=== PATIENT | female | born 1945 | race Caucasian/White ===

== ENCOUNTER 2016-09-19 21:53 | Emergency (ER) | payer MEDICARE | END 2016-09-19 23:32 | disposition home or self-care (01) | LOC: D.ER 21:53 | DX: S00.93XA Contusion of unspecified part of head, initial encounter (principal); W05.0XXA Fall from non-moving wheelchair, initial encounter; Y93.89 Activity, other specified; Y92.129 Unspecified place in nursing home as the place of occurrence of the external cause; Z86.73 Personal history of transient ischemic attack (TIA), and cerebral infarction without residual deficits ==

== ENCOUNTER 2016-09-25 19:32 | Emergency (ER) | payer MEDICARE ==
[2016-09-25 21:42] LABS: BASOPHILS 0.1 % (0-2); EOSINOPHILS 0 % (0-7); HEMATOCRIT 29.7 % (36.0-48.0); HEMOGLOBIN 9.9 g/dL (12-16); IMMATURE GRANULOCYTES 0.3 % (0-5); MCH 31.7 pg (26.0-34.0); MCHC 33.3 g/dL (31.0-37.0); MCV 95.2 fL (80.0-100.0); MEAN PLATELET VOLUME 10.7 fL (7.4-10.4); MONOCYTES 9.9 % (2-11); NEUTROPHILS 62.7 % (40-80); PLATELET COUNT 269 10x3/uL (130-400); RBC 3.12 10x6/uL (4.00-5.40); RDW 16.7 % (11.5-14.5); WBC 6.9 10x3/uL (4.8-10.8)
[2016-09-25 21:54] LABS: ALBUMIN 2.7 g/dL (3.4-5.0); ALKALINE PHOSPHATASE 90 U/L (46-116); ALT (SGPT) 41 U/L (10-68); CALC OSMOLALITY 287 mosm/kg (275-300); CALCIUM 8.4 mg/dL (8.5-10.1); CARBON DIOXIDE 27.1 mmol/L (21.0-32.0); CHLORIDE - SERUM 106 mmol/L (98-107); GLUCOSE 151 mg/dL (74-106); PROTEIN - SERUM 6.2 g/dL (6.4-8.2); SODIUM 141 mmol/L (136-145); UREA NITROGEN 24 mg/dL (7-18); eGFR NON AFRICAN AMERICAN 58 mL/min (90-120)
[2016-09-25 22:10] LABS: CHOL - HDL RATIO 2.3 ratio (2.3-4.1); CHOLESTEROL, TOTAL 128 mg/dL (0-200); CREATINE KINASE 80 UL (21-215); HDL CHOLESTEROL 55 mg/dL (32-96); LDL CHOLESTEROL 51 mg/dL (0-100); LDL-HDL RATIO 0.9 ratio (1.5-3.5); TRIGLYCERIDE 114 mg/dL (30-200)
== END 2016-09-26 00:27 | disposition home or self-care (01) ==
LOC: D.ER 19:32
PROVIDERS: Physician Assistant
DX: R07.9 Chest pain, unspecified (principal); F03.90 Unspecified dementia, unspecified severity, without behavioral disturbance, psychotic disturbance, mood disturbance, and anxiety; I63.9 Cerebral infarction, unspecified; R13.10 Dysphagia, unspecified

== ENCOUNTER 2016-12-16 09:56 | Inpatient (IN) | payer MEDICARE ==
[~2016-12-16] VITALS: Ht 152.4 cm; Wt 70.3 kg
--- NOTE | 2016-12-16 07:40 | NUR ---
PT IN BED WITH EYES CLOSED, RESP EVEN AND UNLABORED, BED LOW AND WHEELS LOCKED, BEDSIDE RAILS X3. CALL LIGHT IN REACH, NAD NOTED, WILL CONTINUE TO MONITOR.
[2016-12-16 10:47] LABS: BASOPHILS 0 % (0-2); EOSINOPHILS 0 % (0-7); HEMATOCRIT 34.2 % (36.0-48.0); HEMOGLOBIN 11.6 g/dL (12-16); IMMATURE GRANULOCYTES 0.2 % (0-5); LYMPHOCYTES 11.8 % (15-50); MCH 31.9 pg (26.0-34.0); MCHC 33.9 g/dL (31.0-37.0); MEAN PLATELET VOLUME 11.3 fL (7.4-10.4); MONOCYTES 4.6 % (2-11); NEUTROPHILS 83.4 % (40-80); PLATELET COUNT 273 10x3/uL (130-400); RBC 3.64 10x6/uL (4.00-5.40); RDW 13.8 % (11.5-14.5); WBC 11.2 10x3/uL (4.8-10.8)
[2016-12-16 11:02] LABS: ANION GAP 17.9 mmol/L (8-16); BILIRUBIN - TOTAL 0.7 mg/dL (0.2-1.3); CALCIUM 9.3 mg/dL (8.5-10.1); CARBON DIOXIDE 20.8 mmol/L (21.0-32.0); CREATININE - SERUM 1.2 mg/dL (0.6-1.3); POTASSIUM - SERUM 3.7 mmol/L (3.5-5.1); PROTEIN - SERUM 7.9 g/dL (6.4-8.2)
[2016-12-16 11:21] LABS: MAGNESIUM - SERUM 1.4 mg/dL (1.8-2.4)
[2016-12-16 11:28] LABS: TROPONIN-I 0.06 ng/mL (0.000-0.060)
[2016-12-16 11:44] LABS: INR 1.39 (0.85-1.17)
[2016-12-16 11:51] LABS: APPEARANCE HAZY (CLEAR); BACTERIA FEW /hpf (NONE SEEN); BILIRUBIN NEGATIVE (NEGATIVE); COLOR YELLOW (YELLOW); EPITHELIAL CELLS 0-5 /hpf (0-5); GLUCOSE NEGATIVE (NEGATIVE); KETONE MODERATE mg/dL (NEGATIVE); LEUKOCYTE ESTERASE TRACE (NEGATIVE); NITRITE NEGATIVE (NEGATIVE); PROTEIN 1+ mg/dL (NEGATIVE); RED CELLS - URINE 0-5 /hpf (0-5); SPECIFIC GRAVITY 1.015 (1.005-1.020); UROBILINOGEN NORMAL (NORMAL); WHITE CELLS - URINE 0-5 /hpf (0-5); YEAST >1+ /hpf (NONE SEEN)
--- NOTE | 2016-12-16 15:00 | NUR ---
PT RECIEVED TO ROOM FROM ER. TRANSFERRED FROM STRETCHER TO BED X3 ASSIST. FAMILY REQUESTED THAT ALL SIDE RAILS BE ELEVATED. EDUCATED FAMILY THAT THIS WAS A RESTRAINT. FAMILY WANTS THE SIDE RAILS UP, FAMILY RAISED SIDE RAILS X4. RR EVEN AND UNLABORED, VSS. IV FLUIDS INITATED, PT VERY LETHARGIC FROM ATIVAN IN ER. DISCUSSED PLAN AND WILL CTM.
[2016-12-16 15:29] VITALS: BP 110/60; BMI 30.3
[2016-12-16] MEDS ORDERED: LIPITOR40 MG PO (16:26)
[2016-12-16] MEDS ORDERED: COREG12.5 MG PO (16:28)
[2016-12-16] MEDS ORDERED: ZESTRIL40 MG PO (16:29)
[2016-12-16] MEDS ORDERED: SEROQUEL25 MG PO (16:31)
[2016-12-16] MEDS ORDERED: ZYLOPRIM300 MG PO (16:33)
[2016-12-16] MEDS ORDERED: ATIVAN0.5 MG (16:34)
[2016-12-16] MEDS ORDERED: CATAPRES0.1 MG PO (16:34)
[2016-12-16] MEDS ORDERED: PLAVIX75 MG PO (16:35)
[2016-12-16] MEDS ORDERED: PEPCID AC20 MG PO (16:37)
[2016-12-16] MEDS ORDERED: XARELTO20 MG PO (16:39)
[2016-12-16] MEDS ORDERED: NUEDEXTA 20-101 EACH PO (16:41)
[2016-12-16] MEDS ORDERED: COLACE100 MG PO (16:41)
[2016-12-16] MEDS ORDERED: ACIDOPHILUS LAC1 CAP PO (16:41)
[2016-12-16] MEDS ORDERED: MAG-OX 400 MG400 MG PO (16:44)
[2016-12-16] MEDS ORDERED: MECLIZINE HCL12.5 MG (16:45)
[2016-12-16] MEDS ORDERED: ZOFRAN4 MG PO (16:45)
--- NOTE | 2016-12-16 16:45 | NUR ---
PT VERY AGITATED AND CONTINUALLY TRYING TO GET OOB. FAMILY AT BEDSIDE. TRANSFERED PT TO ROOM 2107 INTO BED WITH BED ALARM AND IN A ROOM CLOSER TO THE NURSES STATION. DAVID NURSE LAWN CARE SPECIALIST MADE DECISION TO MOVE PATIENT. PT TRYING TO GET OOB CONSTANTLY. WILL CTM.
[2016-12-16] MEDS ORDERED: MIRALAX17 GM PO (16:46)
--- NOTE | 2016-12-16 17:00 | NUR ---
PTS BS 47. GAVE 120 MLS JUICE AND ORDERED PT A TRAY WILL RECHECK BLOOD SUGAR IN 1 HR. RR EVEN AND UNLABORED, PT REPORTS FEELING "GOOD." WILL CTM.
--- NOTE | 2016-12-16 17:00 | NUR ---
CALLED DR. GOYAL ABOUT PT TRYING TO GET OOB AND BEING AGIATED. GAVE VERBAL ORDER FOR ATIVAN PRN Q 2HRS. WILL GIVE AND CTM.
--- NOTE | 2016-12-16 18:15 | NUR ---
PT CONSTANTLY TRYING TO GET OOB. GAVE 0.5 MG ATIVAN. RR EVEN AND UNLABORED, WILL CTM.
--- NOTE | 2016-12-16 18:25 | NUR ---
RECHECKED PTS BS - CURRENTLY 118, VSS SINCE PROCEDURE. RR EVEN AND UNLABORED, PT ALERT AND ORIENTED. WILL GIVE REPORT ON PT CONDITION FOR THE DAY.
--- NOTE | 2016-12-16 18:35 | NUR ---
PT RESTING QUIELTY, RR EVEN AND UNLABORED. NO LONGER TRYING TO CLIMB OOB. WILL GIVE REPORT ON PT CONDITION FOR THE DAY.
[2016-12-16 20:08] VITALS: BP 133/70
--- NOTE | 2016-12-16 22:27 | NUR ---
NO CHANGE FROM PREVIOUS ASSESMENT. PT IN BED, WITH EYES CLOSED, STILL VERY LETHARGIC. RESP EVEN AND UNLABORED, CALL LIGHT IN REACH, NAD NOTED, WILL CONTINUE TO MONITOR.
--- NOTE | 2016-12-16 22:56 | NUR ---
ATTEMPTED TO GIVE PT PO MEDS PT WOULD NOT OPEN MOUTH, TRIED TO GET OUT OF BED, 0.5MG OF ATIVAN ADMINSITERED AT THIS TIME. NAD NOTED, CALL LIGHT IN REACH, WILL CONTINUE TO MONITOR.
[2016-12-17 01:09] VITALS: BP 169/78
[2016-12-17 04:00] VITALS: BP 165/91
--- NOTE | 2016-12-17 07:00 | NUR ---
REPORT RECIEVED FROM OFF COMING NURSE. SEE ASSESSMENT FLOW SHEET. PT UNABLE TO MAKE A SENTENCE BUT ABLE TO MAKE HIGH PITCH NOSISE. BREATHING NORMAL AND UNALBORED. PT HAS A HX OF A CVA. BED IN THE LOWEST POSITION AND CALL LIGHT IN REACH. BED ALARMS IN PLACE AND FUNCTIONAL. WILL CONT POC
[2016-12-17 08:00] VITALS: BP 163/69
[2016-12-17 10:04] VITALS: Ht 152.4 cm; Wt 70.3 kg
[2016-12-17 10:16] LABS: BASOPHILS 0.2 % (0-2); EOSINOPHILS 0 % (0-7); HEMATOCRIT 28.9 % (36.0-48.0); HEMOGLOBIN 9.7 g/dL (12-16); IMMATURE GRANULOCYTES 0.3 % (0-5); LYMPHOCYTES 25.6 % (15-50); MCHC 33.6 g/dL (31.0-37.0); MCV 92.3 fL (80.0-100.0); MEAN PLATELET VOLUME 11.1 fL (7.4-10.4); MONOCYTES 12.3 % (2-11); NEUTROPHILS 61.6 % (40-80); PLATELET COUNT 228 10x3/uL (130-400); RBC 3.13 10x6/uL (4.00-5.40)
--- NOTE | 2016-12-17 10:22 | NUR ---
FAMILY SPOKEN TO VIA PHONE. WISHES FOR PT TO BE A DNR. PAPER WORKED SIGNED BY MD AND PLACED IN CHART.
[2016-12-17 10:30] LABS: WBC 6.6 10x3/uL (4.8-10.8)
[2016-12-17 10:46] LABS: ANION GAP 13.7 mmol/L (8-16); CALCIUM 8.6 mg/dL (8.5-10.1); CARBON DIOXIDE 22.6 mmol/L (21.0-32.0); CREATININE - SERUM 1.1 mg/dL (0.6-1.3); PHOSPHOROUS 2.7 mg/dL (2.5-4.9); POTASSIUM - SERUM 3.3 mmol/L (3.5-5.1)
[2016-12-17 10:47] LABS: MAGNESIUM - SERUM 1.8 mg/dL (1.8-2.4)
--- NOTE | 2016-12-17 10:47 | NUR ---
PT PULLED LEFT IV OUT. CATHETER TIP INTACT. PT HAD ANOTHER IV THAT WAS SL. IV FLUIDS PLACED IN WORKING IV THAT IS PATENT. DRESSING C/D/I.
[2016-12-17 12:00] VITALS: BP 137/45
--- NOTE | 2016-12-17 12:00 | NUR ---
FAMILY AT BED SIDE ATTEMPTED TO FEED PT BUT PT REFUSED SCREAMING. UNCOMPREHENSIBLE SOUNDS COMING FROM PT. BED IN LOWEST POSITION. CALL LIGHT INR EACH
[2016-12-17 16:00] VITALS: BP 181/80
--- NOTE | 2016-12-17 18:15 | NUR ---
PT ALARM WAS SOUNDED. WENT INTO PTS ROOM AND PT WAS FOUND WITH HER UPPER HALF OF HER BODY ON THE FLOOR WITH HER LOWER HALF IN BED BEWEEN THE UPPER AND LOWER RAILS. BOTH ALARMS WERE SOUNDING. BED IN LOWEST POSITION. NEURO CHECK PREFORMED AND NO CHANGES FROM BASELINE. PT BACK IN BED AND NO OBVIOUS S/SX OF INJURY NOTED. NOTIFIED WITH NEW ORDERS FOR A ENCLOSEMENT BED. KATARINA (BROTHER) CALLED AND AWARE OF SITUATION. QUESTIONS ANSWERED. HOUSE SUPIVISIOR NOTIFIED. PT IN BED DENING PAIN BUT STILL MAKING THE SAME SCREAMS THIS [id number]. CALL LIGHT IN [facility]. BED IN LOWEST POSITION.
--- NOTE | 2016-12-17 18:45 | NUR ---
REPORT GIVEN TO ON COMING NURSE. NEURO CHECKS WNL'S. PT BREATHING NORMAL AND UNLABORED. 0 S/SX OF DISTRESS/DISCOMFORT NOTEED.
[2016-12-17 19:00] VITALS: BP 179/87
--- NOTE | 2016-12-17 19:10 | NUR ---
Received patient in bed leaning over siderail. Making moaning whining noises, no discernible words. Does not recognize her name when called. Deemed to be disoriented x 4 to person, place, time and situation. PIV in back of right hand wrapped with coban for safety to prevent patient from pulling it out. D5 LR infusing @100ml/hr. Rodriguez catheter in place, draining clear pale yellow urine. Repositioned patient, propped with pillows and encouraged to rest in bed. Side rails up for safety. Day Nurse reports that a special bed has been ordered as patient gets easily agitated, is undirectable and repeatedly trying to crawl out of bed. Will continue to monitor closely.
--- NOTE | 2016-12-17 20:25 | NUR ---
Patient continues restless, moving about in bed, swinging legs over side rails, repostioned in bed with legs put back in bed. Unable to make needs know to staff. Hands removed from vance catheter tubing. Attempted to reorient patient, continues to make noises but no words.
--- NOTE | 2016-12-17 21:37 | NUR ---
No change in condition, frequently repositon patient back into bed, partial limbs hanging over side rails.
--- NOTE | 2016-12-17 22:05 | NUR ---
Refusing any offer of food or fluids, not given medications at this time. Will attempt later.
--- NOTE | 2016-12-17 23:45 | NUR ---
Patient placed in [place] bed for safety by assistance of three staff. Attempted to explain to patient waht is going on and criteria for removal from [place] Bed but patient shows no signs of understanding. Will continue to monitor for safety.
[2016-12-18] VITALS: BP 158/68
--- NOTE | 2016-12-18 00:21 | NUR ---
Medications that are tablets were all crushed, medications that were capsules were all opened, Colace punctured with needle and fluid drained out. All powders and fluids were placed in a vanilla ice cream cup and mixed. Patient ate 100%. Last two BPs were 179/87 and 158/68. Did receive antihypertensives with HS medications. Patient cooperative at this time.
--- NOTE | 2016-12-18 01:15 | NUR ---
Patient tangled up in IV tubing and vance catheter tubing. Same detangled with two person assist. Patient oblivious to same. Remains in [place] Bed for safety.
--- NOTE | 2016-12-18 02:13 | NUR ---
Patient has swung 180 degrees in [place] bed, PIV tubing stretched. Same untwisted and tension relaxed. PIV site remains in place, no signs of infiltration. Patient anxious, making noises, but slightly calmer than two hours ago. Will continue to monitor. Remains in [place] bed for safety.
[2016-12-18 04:00] VITALS: BP 148/68
--- NOTE | 2016-12-18 05:16 | NUR ---
Eyes closed, respirations unlabored. Deemed to be sleeping at this time. IV infusing and vance catheter draining.
[2016-12-18] MEDS ORDERED: Levaquin PO (07:36)
[2016-12-18] MEDS ORDERED: ATIVAN1 MG PO (07:38)
[2016-12-18] MEDS ORDERED: CATAPRES0.2 MG PO (07:39)
[2016-12-18] MEDS ORDERED: LISINOPRIL10 MG PO (07:39)
[2016-12-18] MEDS ORDERED: SEROQUEL25 MG PO (07:41)
--- NOTE | 2016-12-18 08:00 | NUR ---
CONFUSED. RESTING IN BED. BP-148/43, P-69, O2-95%, R-98.3. JASWINDER BED UNZIPPED TO ASSIST FEEDING. REFUSE TO EAT. ZIP BED BACK UP. IN VIEW OF NURSES STATION. CONTINUE PLAN OF CARE. BED LOCKED AND LOW. CALL LIGHT IN REACH.
[2016-12-18 08:18] VITALS: BP 148/43
--- NOTE | 2016-12-18 10:11 | NUR ---
Patient Name: MOOKIE LAWRENCE Admission Status: ER Accout number: [id number] Admission Date: 12-16-2016 : 1945 Admission Diagnosis:FEVER, UNSPECIFIED Attending: EMRE GOYAL Current LOS: 2 Anticipated DC Date: 12-18-2016 Planned Disposition: Nursing Facility PARAM Cert Primary Insurance: [employer] MEDICARE ADV PLANNED EXTERNAL PROVIDER: [facility], [facility] BED Discharge Planning Comments: * Is the patient Alert and Oriented? No 0 * How many steps to enter\exit or inside your home? NONE 0 * PCP [facility] 0 * Pharmacy [facility] 0 * Preadmission Environment [facility]ter 0 * Facility Name [facility] 0 * ADLs Partial Dependent 0 * Partial ADLs (Assistance needed) Ambulation Bathing Dressing Medication Management Toileting Transfers 0 * Equipment Other 0 * Other Equipment ALL MEDICAL EQUIPMENT PROVIDED BY FACILITY 0 * List name and contact numbers for known caregivers / representatives who currently or will assist patient after discharge: KATARINA FLANAGAN, BROTHER/POA, LUBNA MARTINEZ, SISTER, 0 * Community resources currently utilized None 0 * Please name any agencies selected above. NONE 0 * Additional services required to return to the preadmission environment? No 0 * Can the patient safely return to the preadmission environment? Yes 0 * Has this patient been hospitalized within the prior 30 days at any hospital? No 0 CM RECEIVED DISCHARGE ORDER, ATTEMPTED TO MEET WITH PT, PT CONFUSED. IMPORTANT MESSAGE FROM MEDICARE PROVIDED. CM CALLED PT'S LISTED EMERGENCY CONTACT, KATARINA FLANAGAN, BROTHER, . KATARINA REPORTS BEING PT'S POA AND GOING TO COURT FOR FINALIZATION OF GUARDIAN[facility]IP. KATARINA IN AGREEMENT WITH DISCHARGE BACK TO [place], PT LIVES THERE FOR RETIREMENT CARE. KATARINA WANTS TO BE CALLED WHEN THE AMBULANCE PICKS UP PT TO GO TO [place]. IMPORTANT MESSAGE FROM MEDICARE DISCUSSED. CM CALLED [facility], , SPOKE TO PAULO WHO REPORTS [place] WILL ACCEPT PT TODAY. CM FAXED DISCHARGE INFORMATION TO [facility] AT [phone]. NURSE REPORT TO BE CALLED TO [facility], [facility] NURSE, . PT TO TRANSPORT VIA AMBULANCE. Assistant Winemaker: Arjun Askew
[2016-12-18 11:34] VITALS: BP 200/59
--- NOTE | 2016-12-18 11:46 | NUR ---
STEFFANIE WITH [facility] CALLED TO [facility] TRANSPORATION TO BE PROVIDED AT 1730 TODAY
--- NOTE | 2016-12-18 12:00 | NUR ---
CONFUSED. LAYING IN BED. JASWINDER BED CLOSED. TOOK ALL MORNING MEDS. T-97.6, BP-200/59, P-85, R-18, O2-96% RA. IN VIEW OF NURSES STATION. CONTINUE PLAN OF CARE. BED LOCKED AND LOW. CALL LIGHT IN REACH.
--- NOTE | 2016-12-18 14:51 | NUR ---
REPORT CALLED TO [facility]. REPORT GIVEN TO RADHA TOUSSAINT. SLEEPING IN BED. PLAN TO TRANSPORT TO REHAB VIA [facility]. CONTINUE PLAN OF CARE AND SAFETY PRECAUTIONS.
--- NOTE | 2016-12-18 17:23 | NUR ---
[facility] ARRIVE FOR TRANSPORT TO [facility]. DC RT HAND IV TIP INTACT. ASSIST WITH TRANSFER FROM JASWINDER BED TO STRETCHER. UNABLE TO SIGN DISCHARGE PAPERS. PHOSPHORIC ACID SUPERVISOR CALLED TO GET JASWINDER BED. JEFFREY PRADHAN CALLED TO NOTIFY OF DEPARTURE.
== END 2016-12-18 17:25 | DRG 864 ==
LOC: D.ER 09:56 → D.M2 14:47
PROVIDERS: Emergency Medicine; ADMIT Family Medicine
DX: R50.9 Fever, unspecified (principal); F01.51 Vascular dementia, unspecified severity, with behavioral disturbance; Z79.01 Long term (current) use of anticoagulants; I10 Essential (primary) hypertension; I69.919 Unspecified symptoms and signs involving cognitive functions following unspecified cerebrovascular disease; E78.5 Hyperlipidemia, unspecified; F41.9 Anxiety disorder, unspecified; K21.9 Gastro-esophageal reflux disease without esophagitis; F48.2 Pseudobulbar affect; K59.09 Other constipation; Z86.718 Personal history of other venous thrombosis and embolism

== ENCOUNTER 2017-10-13 11:34 | Inpatient (IN) | payer MEDICARE, MEDICAID ==
[2017-10-13] VITALS (13 sets, daily range): BP systolic 120–213; BP diastolic 90–124; BMI 27.5
[~2017-10-13] VITALS: Ht 152.4 cm; Wt 68.6 kg
--- NOTE | ~2017-10-13 | CN ---
PATIENT NAME:MOOKIE MURRAY MEDICAL RECORD: [id number] : 49 LOCATION:[facility]2305 ADMIT DATE: 10/13/17 ACCOUNT: [id number] CONSULTING PHYSICIAN: MODESTO LARA MD REFERRING PHYSICIAN: DANIEL LINO MD DATE OF CONSULTATION: 10/15/2017 CONSULT REQUESTING PHYSICIAN: Daniel Lino MD REASON FOR CONSULTATION: Pneumonia, acute hypoxic respiratory failure. HISTORY OF PRESENT ILLNESS: Ms. Murray is a 72-year-old female who has a history of CVA. The patient is nonverbal and now unresponsive. The patient was transferred from the half-way with acute DKA, lactic acidosis, hypernatremia, and the serum glucose was more than 1000. Now, the DKA is treated, but the patient has acute renal failure and the chest radiograph shows some infiltrate with infiltrate and significant leukocytosis. REVIEW OF SYSTEMS: The detail is not obtainable. PAST MEDICAL HISTORY: 1. History of cerebrovascular accident. 2. Dysphagia. 3. Diabetes. 4. Hypertension. PAST SURGICAL HISTORY: She has a and thyroidectomy. ALLERGIES: There are no known drug allergies. MEDICATIONS: On Rankomat.pl is reviewed. PERSONAL AND SOCIAL HISTORY: The patient is an ex-smoker. FAMILY HISTORY: Noncontributory. PHYSICAL EXAMINATION: GENERAL: The patient is now on nasal cannula. The patient is unresponsive. VITAL SIGNS: The blood pressure is 120/63, pulse is 92, respirations 32, temperature 97.9, SPO2 is 92% on 2 liters nasal cannula. HEENT: Conjunctivae are pink. Sclerae is not icteric. NECK: Supple. There is no JVD. CHEST: There are coarse breath sounds with crackles bilaterally. HEART: Rhythm regular, normal heart sound. No murmur. ABDOMEN: Soft. Bowel sounds present. RECTAL: Deferred. EXTREMITIES: No clubbing. There is cyanosis, 1+ pedal edema. CENTRAL NERVOUS SYSTEM: The patient is unresponsive as she do not respond to verbal stimuli and painful stimuli. CHEST RADIOGRAPH: There is prominent perihilar infiltrate. There is peribronchial cuffing. No pneumothorax. OTHER LABORATORY DATA: CBC: The WBC is 19.9, hemoglobin 12.3, hematocrit 38.4, the platelet count 241. Chemistry: Sodium 142, potassium 4.1, chloride 108, CONSULT REPORT [id number] MOOKIE MURRAY bicarbonate is 19.5, BUN is 108, creatinine is 2.5. Total bilirubin is 1.53. AST is 83. IMPRESSION: 1. Acute hypoxic respiratory failure. 2. Pneumonia, possible aspiration. The patient is unresponsive. 3. Bacteremia consistent with Enterococcus faecalis. 4. Acute kidney injury with acute renal failure. 5. Diabetic ketoacidosis. 6. Leukocytosis. 7. Hypernatremia, resolved. RECOMMENDATION: 1. IV fluids per nephrology. 2. Discontinue Rocephin and start her on cefepime. Continue Levaquin. 3. We will give her a dose of vancomycin IV. 4. Supplemental oxygen. 5. Frequent suction. Dr. Lino, thank you for involving me in the care of Ms. Murray. Follow up labs and chest radiograph. TRANSINT:[id number] Voice Confirmation ID: [id number] DOCUMENT ID: [id number] MODESTO LARA MD at 1218 CC: [id number] DICTATION DATE: 10/15/17 1315 MACHINERY DISMANTLER: 10/15/17 1335 DIS IN 10/15/17 [id number] [place] [address]
[~2017-10-13 11:34] MED LIST: ACIDOPHILUS LAC1 CAP PO; ATIVAN0.5 MG; ATIVAN1 MG PO; CATAPRES0.1 MG PO; CATAPRES0.2 MG PO; COLACE100 MG PO; COREG12.5 MG PO; LIPITOR40 MG PO; LISINOPRIL10 MG PO; Levaquin PO; MAG-OX 400 MG400 MG PO; MECLIZINE HCL12.5 MG; MIRALAX17 GM PO; NUEDEXTA 20-101 EACH PO; PEPCID AC20 MG PO; PLAVIX75 MG PO; SEROQUEL25 MG PO; XARELTO20 MG PO; ZESTRIL40 MG PO; ZOFRAN4 MG PO; ZYLOPRIM300 MG PO
[2017-10-13 12:03] LABS: BASOPHILS 0.1 % (0-2); EOSINOPHILS 0 % (0-7); HEMATOCRIT 49.4 % (36.0-48.0); HEMOGLOBIN 14.8 g/dL (12-16); IMMATURE GRANULOCYTES 0.4 % (0-5); LYMPHOCYTES 13.1 % (15-50); MCH 30.7 pg (26.0-34.0); MCV 102.5 fL (80.0-100.0); MEAN PLATELET VOLUME 13.3 fL (7.4-10.4); MONOCYTES 5.4 % (2-11); RBC 4.82 10x6/uL (4.00-5.40); RDW 15.6 % (11.5-14.5); WBC 18.9 10x3/uL (4.8-10.8)
[2017-10-13 12:14] LABS: APTT 22.5 SECONDS (22.8-39.4); INR 1.24 (0.85-1.17); PROTIME 15.1 SECONDS (11.6-15.0)
[2017-10-13 12:19] LABS: ALBUMIN 3.1 g/dL (3.4-5.0); ANION GAP 26.1 mmol/L (8-16); BILIRUBIN - TOTAL 0.4 mg/dL (0.2-1.3); CALCIUM 9.4 mg/dL (8.5-10.1); CREATININE - SERUM 3.8 mg/dL (0.6-1.3); POTASSIUM - SERUM 5.1 mmol/L (3.5-5.1); PROTEIN - SERUM 8.8 g/dL (6.4-8.2)
[2017-10-13 12:49] LABS: PLATELET COUNT 465 10x3/uL (130-400)
[2017-10-13 15:10] LABS: APPEARANCE CLEAR (CLEAR); BILIRUBIN NEGATIVE (NEGATIVE); COLOR YELLOW (YELLOW); GLUCOSE 1000 mg/dL (NEGATIVE); KETONE SMALL mg/dL (NEGATIVE); NITRITE NEGATIVE (NEGATIVE); PROTEIN TRACE mg/dL (NEGATIVE); UROBILINOGEN NORMAL (NORMAL)
[2017-10-13 17:22] LABS: BASOPHILS 0.1 % (0-2); EOSINOPHILS 0.1 % (0-7); HEMATOCRIT 43.3 % (36.0-48.0); HEMOGLOBIN 13.3 g/dL (12-16); IMMATURE GRANULOCYTES 0.4 % (0-5); LYMPHOCYTES 10.9 % (15-50); MCH 30.6 pg (26.0-34.0); MCHC 30.7 g/dL (31.0-37.0); MEAN PLATELET VOLUME 12.9 fL (7.4-10.4); MONOCYTES 8.3 % (2-11); NEUTROPHILS 80.2 % (40-80); PLATELET COUNT 378 10x3/uL (130-400); RBC 4.35 10x6/uL (4.00-5.40); RDW 15.3 % (11.5-14.5); WBC 16.8 10x3/uL (4.8-10.8)
[2017-10-13 17:26] LABS: MCV 99.5 fL (80.0-100.0)
[2017-10-13 18:08] LABS: CALCIUM 8.7 mg/dL (8.5-10.1); CARBON DIOXIDE 20.3 mmol/L (21.0-32.0); CREATININE - SERUM 3.5 mg/dL (0.6-1.3)
[2017-10-13 18:11] LABS: ANION GAP 21.5 mmol/L (8-16); POTASSIUM - SERUM 3.8 mmol/L (3.5-5.1)
[2017-10-13 22:33] LABS: ALBUMIN 2.8 g/dL (3.4-5.0); ANION GAP 16.1 mmol/L (8-16); BILIRUBIN - TOTAL 0.58 mg/dL (0.2-1.3); CARBON DIOXIDE 24.4 mmol/L (21.0-32.0); CREATININE - SERUM 3.4 mg/dL (0.6-1.3); POTASSIUM - SERUM 3.5 mmol/L (3.5-5.1)
[2017-10-14] VITALS (26 sets, daily range): BP systolic 89–183; BP diastolic 34–113; Ht 152.4 cm; Wt 68.6 kg
[2017-10-14 04:31] LABS: BASOPHILS 0.1 % (0-2); EOSINOPHILS 0.2 % (0-7); HEMATOCRIT 42.9 % (36.0-48.0); HEMOGLOBIN 13.9 g/dL (12-16); IMMATURE GRANULOCYTES 0.4 % (0-5); LYMPHOCYTES 11.6 % (15-50); MCH 30.9 pg (26.0-34.0); MCHC 32.4 g/dL (31.0-37.0); MEAN PLATELET VOLUME 12.9 fL (7.4-10.4); MONOCYTES 7.8 % (2-11); NEUTROPHILS 79.9 % (40-80); PLATELET COUNT 353 10x3/uL (130-400); RDW 15.2 % (11.5-14.5); WBC 17.4 10x3/uL (4.8-10.8)
[2017-10-14 04:35] LABS: MCV 95.3 fL (80.0-100.0)
[2017-10-14 04:53] LABS: ANION GAP 14.1 mmol/L (8-16); CALCIUM 9.2 mg/dL (8.5-10.1); CARBON DIOXIDE 25.1 mmol/L (21.0-32.0); CREATININE - SERUM 2.7 mg/dL (0.6-1.3); POTASSIUM - SERUM 3.2 mmol/L (3.5-5.1)
[2017-10-14 17:39] LABS: ANION GAP 15.6 mmol/L (8-16); CALCIUM 8.8 mg/dL (8.5-10.1); CARBON DIOXIDE 22.7 mmol/L (21.0-32.0); CREATININE - SERUM 2.4 mg/dL (0.6-1.3)
[2017-10-14 17:40] LABS: POTASSIUM - SERUM 5.3 mmol/L (3.5-5.1)
[2017-10-15] VITALS (19 sets, daily range): BP systolic 74–168; BP diastolic 24–90
[2017-10-15 05:11] LABS: BASOPHILS 0.1 % (0-2); EOSINOPHILS 0.2 % (0-7); HEMATOCRIT 38.4 % (36.0-48.0); HEMOGLOBIN 12.3 g/dL (12-16); IMMATURE GRANULOCYTES 0.7 % (0-5); LYMPHOCYTES 10.9 % (15-50); MCH 30.3 pg (26.0-34.0); MCV 94.6 fL (80.0-100.0); MEAN PLATELET VOLUME 13.6 fL (7.4-10.4); MONOCYTES 8.6 % (2-11); NEUTROPHILS 79.5 % (40-80); RBC 4.06 10x6/uL (4.00-5.40); RDW 15.5 % (11.5-14.5); WBC 19.9 10x3/uL (4.8-10.8)
[2017-10-15 05:12] LABS: PLATELET COUNT 241 10x3/uL (130-400)
[2017-10-15 05:55] LABS: ALBUMIN 2.4 g/dL (3.4-5.0); BILIRUBIN - TOTAL 1.53 mg/dL (0.2-1.3); CALCIUM 8.2 mg/dL (8.5-10.1); CARBON DIOXIDE 19.5 mmol/L (21.0-32.0); CREATININE - SERUM 2.5 mg/dL (0.6-1.3); PROTEIN - SERUM 6.8 g/dL (6.4-8.2)
[2017-10-15 06:10] LABS: ANION GAP 18.6 mmol/L (8-16); POTASSIUM - SERUM 4.1 mmol/L (3.5-5.1)
== END 2017-10-15 20:25 | DRG 682 ==
LOC: D.ER 11:34 → D.ICU 15:57
PROVIDERS: Family Medicine; Internal Medicine
PROC: 5A09357 Assistance with Respiratory Ventilation, Less than 24 Consecutive Hours, Continuous Positive Airway Pressure (ICD-10-PCS; principal; 2017-10-15)
DX: N17.9 Acute kidney failure, unspecified (principal); E11.10 Type 2 diabetes mellitus with ketoacidosis without coma; J96.01 Acute respiratory failure with hypoxia; J18.9 Pneumonia, unspecified organism; G93.40 Encephalopathy, unspecified; R78.81 Bacteremia; F01.51 Vascular dementia, unspecified severity, with behavioral disturbance; E87.0 Hyperosmolality and hypernatremia; E87.2 Acidosis; I69.328 Other speech and language deficits following cerebral infarction; I10 Essential (primary) hypertension; Z66 Do not resuscitate; D72.829 Elevated white blood cell count, unspecified; F48.2 Pseudobulbar affect; R40.2363 Coma scale, best motor response, obeys commands, at hospital admission; R40.2143 Coma scale, eyes open, spontaneous, at hospital admission; R40.2243 Coma scale, best verbal response, confused conversation, at hospital admission